=== PATIENT | female | born 1965 | race Two or more races ===

== ENCOUNTER 2019-12-05 16:46 | Emergency (ER) | payer MEDICAID ==
[~2019-12-05] VITALS: Ht 154.9 cm; Wt 71.7 kg
[2019-12-05 16:53] VITALS: BP 127/76
== END 2019-12-05 17:03 | disposition left against medical advice (07) ==
LOC: ER 16:46
DX: J02.9 Acute pharyngitis, unspecified (principal); Z53.21 Procedure and treatment not carried out due to patient leaving prior to being seen by health care provider